=== PATIENT | female | born 1990 | race African-American/Black ===

== ENCOUNTER 2018-06-24 17:53 | Emergency (ER) | payer OTHER ==
[~2018-06-24] VITALS: Ht 154.9 cm; Wt 54.4 kg
[2018-06-24] MEDS ORDERED: NITROGLYCERIN SUBLINGUAL 0.4 MG BOTTLE OF 25. SL PRN (18:30)
[2018-06-24] MEDS ORDERED: ASPIRIN CHEWABLE 81 MG TABLET. PO ONE (18:30)
[2018-06-24] MEDS ORDERED: IV NORMAL SALINE 1000ML BAG 1,000 ML IV SCH (18:30)
--- NOTE | 2018-06-24 18:41 | PHYS DOC ---
Past Medical History Past Medical History: Other Additional Past Medical Histor: taylor Past Surgical History: Other Additional Past Surgical Histo: skin grafts Alcohol Use: None Drug Use: None Adult General Chief Complaint Chief Complaint: NAUSEA/VOMITING/DIARRHA HPI HPI Patient is a 27-year-old female who presents with complaint of acute onset of dizziness that started yesterday morning. She states that symptoms have continued since that time. She describes the dizziness as if everything is spinning and she feels like she is given a fall. She states that when the dizziness that she gets very nauseated and vomits. She denies any headache. She denies any chest pain or shortness of breath. Patient states that symptoms are improved when she lies still and worsened with movement. Review of Systems Review of Systems Constitutional: Denies fever or chills [] Eyes: Denies change in visual acuity, redness, or eye pain [] Respiratory: Denies cough or shortness of breath [] Cardiovascular: No additional information not addressed in HPI [] GI: Denies abdominal pain. Complains of nausea and vomiting. [] Integument: Denies rash or skin lesions [] Neurologic: Complains of dizziness. Denies headache, focal weakness or sensory changes [] All other systems were reviewed and found to be within normal limits, except as documented in this note. Current Medications Current Medications Current Medications Medications (Trade) Dose Ordered Sig/Alley Start Time Stop Time Status Last Admin Dose Admin Aspirin (Children'S Aspirin) 324 mg 1X ONCE 06/24/18 18:30 06/24/18 18:31 Cancel Lorazepam (Ativan) 1 mg 1X ONCE 06/24/18 18:45 06/24/18 18:46 Cancel Meclizine HCl (Antivert) 25 mg 1X ONCE 06/24/18 20:30 06/24/18 20:31 DC Nitroglycerin (Nitrostat) 0.4 mg PRN Q5MIN PRN 06/24/18 18:30 06/25/18 18:29 Cancel Ondansetron HCl (Zofran) 4 mg 1X ONCE 06/24/18 18:45 06/24/18 18:46 DC 06/24/18 19:22 4 MG Sodium Chloride 1,000 ml @ 100 mls/hr Q10H 06/24/18 18:30 06/25/18 04:29 Cancel Allergies Allergies Allergies Coded Allergies Type Severity Reaction Last Updated Verified No Known Drug Allergies 06/24/18 No Physical Exam Physical Exam Constitutional: Well developed, well nourished, no acute distress, non-toxic appearance. [] HENT: Normocephalic, atraumatic, bilateral external ears normal, oropharynx moist, no oral exudates, nose normal. [] Eyes: PERRLA, EOMI, conjunctiva normal, no discharge. [] Neck: Normal range of motion, no tenderness, supple. [] Cardiovascular: Regular rate and rhythm[] Lungs & Thorax: Bilateral breath sounds clear to auscultation [] Abdomen: Bowel sounds normal, soft, no tenderness. [] Skin: Warm, dry, no erythema, no rash. [] Extremities: No tenderness, no cyanosis, no clubbing, ROM intact, no edema. [] Neurologic: Alert and oriented X 3, no focal deficits noted. [] Current Patient Data Vital Signs Vital Signs Date Time Temp Pulse Resp B/P (MAP) Pulse Ox O2 Delivery O2 Flow Rate FiO2 06/24/18 20:09 68 121/69 (86) 100 Room Air 06/24/18 17:58 97.9 16 97.9 Lab Values Laboratory Tests Test 06/24/18 18:47 White Blood Count 6.0 x10^3/uL (4.0-11.0) Red Blood Count 4.80 x10^6/uL (3.50-5.40) Hemoglobin 7.7 g/dL (12.0-15.5) L Hematocrit 27.1 % (36.0-47.0) L Mean Corpuscular Volume 57 fL (79-100) L Mean Corpuscular Hemoglobin 16 pg (25-35) L Mean Corpuscular Hemoglobin Concent 28 g/dL (31-37) L Red Cell Distribution Width 20.3 % (11.5-14.5) H Platelet Count 223 x10^3/uL (140-400) Neutrophils (%) (Auto) 51 % (31-73) Lymphocytes (%) (Auto) 44 % (24-48) Monocytes (%) (Auto) 4 % (0-9) Eosinophils (%) (Auto) 0 % (0-3) Basophils (%) (Auto) 1 % (0-3) Neutrophils # (Auto) 3.1 x10^3uL (1.8-7.7) Lymphocytes # (Auto) 2.7 x10^3/uL (1.0-4.8) Monocytes # (Auto) 0.2 x10^3/uL (0.0-1.1) Eosinophils # (Auto) 0.0 x10^3/uL (0.0-0.7) Basophils # (Auto) 0.0 x10^3/uL (0.0-0.2) Platelet Estimate Adequate (ADEQUATE) Hypochromasia Marked Poikilocytosis Mod Anisocytosis Mod Microcytosis Marked Target Cells Occ Ovalocytes Few Acanthocytes (Spur Cells) Occ Schistocytes Occ Sodium Level 141 mmol/L (136-145) Potassium Level 3.9 mmol/L (3.5-5.1) Chloride Level 104 mmol/L (98-107) Carbon Dioxide Level 25 mmol/L (21-32) Anion Gap 12 (6-14) Blood Urea Nitrogen 11 mg/dL (7-20) Creatinine 0.6 mg/dL (0.6-1.0) Estimated GFR (Cockcroft-Gault) 146.2 BUN/Creatinine Ratio 18 (6-20) Glucose Level 85 mg/dL (70-99) Calcium Level 9.3 mg/dL (8.5-10.1) Magnesium Level 1.9 mg/dL (1.8-2.4) Total Bilirubin 1.1 mg/dL (0.2-1.0) H Aspartate Amino Transferase (AST) 21 U/L (15-37) Alanine Aminotransferase (ALT) 28 U/L (14-59) Alkaline Phosphatase 51 U/L (46-116) Total Protein 8.7 g/dL (6.4-8.2) H Albumin 3.9 g/dL (3.4-5.0) Albumin/Globulin Ratio 0.8 (1.0-1.7) L Laboratory Tests 06/24/18 18:47 Laboratory Tests 06/24/18 18:47 EKG EKG [] Radiology/Procedures Radiology/Procedures [] Course & Med Decision Making Course & Med Decision Making Pertinent Labs and Imaging studies reviewed. (See chart for details) [] Dragon Disclaimer Dragon Disclaimer This electronic medical record was generated, in whole or in part, using a voice recognition dictation system. Departure Departure Impression: Primary Impression: Benign positional vertigo Disposition: HOME, SELF-CARE Condition: STABLE Referrals: NO PCP (PCP) Patient Instructions: Benign Positional Vertigo Scripts Ondansetron Hcl (ZOFRAN) 4 Mg Tablet 4 MG PO PRN TID PRN for NAUSEA, #15 TAB nausea/vomiting Prov: ASA NEVILLE Jr. DO 06/24/18 Meclizine Hcl (MECLIZINE HCL) 25 Mg Tablet 25 MG PO PRN TID PRN for DIZZINESS, #30 dizziness Prov: ASA NEVILLE Jr. DO 06/24/18 Problem Qualifiers Primary Impression: Benign positional vertigo Laterality: unspecified laterality Qualified Codes: H81.10 - Benign paroxysmal vertigo, unspecified ear ASA NEVILLE Jr. DO Jun 24, 2018 18:41
[2018-06-24] MEDS ORDERED: MECLIZINE HCL 12.5 MG TABLET. PO ONE ×2 (18:45→20:30)
[2018-06-24] MEDS ORDERED: ONDANSETRON PF 4 MG/2 ML VIAL. IV ONE (18:45)
[2018-06-24 19:00] LABS: BASO % 1 % (0-3); EOS % 0 % (0-3); HEMATOCRIT 27.1 % (36.0-47.0); HEMOGLOBIN 7.7 g/dL (12.0-15.5); LYMPH # 2.7 x10^3/uL (1.0-4.8); LYMPH % 44 % (24-48); MEAN CORPUSCULAR HEMOGLOBIN 16 pg (25-35); MEAN CORPUSCULAR HGB CONC 28 g/dL (31-37); MEAN CORPUSCULAR VOLUME 57 fL (79-100); MONO # 0.2 x10^3/uL (0.0-1.1); MONO % 4 % (0-9); NEUT # 3.1 x10^3uL (1.8-7.7); NEUT % 51 % (31-73); PLATELET COUNT 223 x10^3/uL (140-400); RED CELL DISTRIBUTION WIDTH 20.3 % (11.5-14.5)
[2018-06-24 19:09] LABS: CALCIUM 9.3 mg/dL (8.5-10.1); CREATININE 0.6 mg/dL (0.6-1.0); GFR 146.2; POTASSIUM 3.9 mmol/L (3.5-5.1)
[2018-06-24 19:21] LABS: ALBUMIN 3.9 g/dL (3.4-5.0); ALBUMIN/GLOBULIN RATIO 0.8 (1.0-1.7); MAGNESIUM 1.9 mg/dL (1.8-2.4); TOTAL BILIRUBIN 1.1 mg/dL (0.2-1.0); TOTAL PROTEIN 8.7 g/dL (6.4-8.2)
[2018-06-24 19:56] LABS: ANISOCYTOSIS MOD; HYPOCHROMIA MARKED; PLT ESTIMATE ADEQUATE (ADEQUATE); TARGET CELLS OCC
[2018-06-24 19:57] LABS: OVALOCYTES FEW; SCHISTOCYTES OCC
[2018-06-24 19:58] LABS: MICROCYTOSIS MARKED
[2018-06-24 19:59] LABS: ACANTHOCYTES OCC
[2018-06-24 20:01] LABS: POIKILOCYTOSIS MOD
[2018-06-24] MEDS ORDERED: ONDA4TAB7 PO (20:37)
[2018-06-24] MEDS ORDERED: MECL25TA3 PO (20:37)
[2018-06-24 21:09] VITALS: BP 119/56
--- NOTE | 2018-06-25 18:49 | EKG ---
[facility] [address] [place] [address] Test Date: 2018-06-24 Test Time: 19:30:44 Pat Name: JAVED SOLIS Department: Room: Gender: F General Superintendent: : 1990 Requested By: ASA NEVILLE Order Number: [id number] Reading MD: Helio Ayoub Measurements Intervals Jeddo Rate: 60 P: 54 SC: 144 QRS: 43 QRSD: 74 T: 17 QT: 394 QTc: 394 Interpretive Statements SINUS RHYTHM Electronically Signed On 07-01-2018 11:03:30 DIESEL SERVICE APPRENTICE by Helio Ayoub
== END 2018-06-24 21:27 | disposition home or self-care (01) ==
LOC: ER 17:53
DX: H81.10 Benign paroxysmal vertigo, unspecified ear (principal); R11.2 Nausea with vomiting, unspecified; Z79.82 Long term (current) use of aspirin
CPT/HCPCS: 36415; 80053; 83735; 85025; 93005; 96374; 96375; 99284; J2060; J2405; J8597

== ENCOUNTER 2019-04-30 15:28 | Emergency (ER) | payer OTHER ==
[~2019-04-30] VITALS: Ht 154.9 cm; Wt 63.5 kg
[~2019-04-30 15:28] MED LIST: MECL-75 PO; ONDA4TAB7 PO
[2019-04-30] MEDS ORDERED: KETOROLAC TROMETHAMINE 10 MG TABLET PO STA (15:59)
[2019-04-30] MEDS ORDERED: LIDOCAINE 2% VISCOUS 15 ML SOLUTION. SWSW STA (15:59)
[2019-04-30] MEDS ORDERED: AMOX1TAB61 PO (16:08)
--- NOTE | 2019-04-30 16:09 | PHYS DOC ---
Past Medical History Past Medical History: Other Additional Past Medical Histor: taylor Past Surgical History: Other Additional Past Surgical Histo: skin grafts Alcohol Use: None Drug Use: None Adult General Chief Complaint Chief Complaint: DENTAL PROBLEM HPI HPI Patient is a 28 year old female who presents with headache, cough that's been ongoing for 3 days. Patient also been having toothache this been ongoing for weeks. She rates her pain 10 out of 10 in severity and sharp. Review of Systems Review of Systems Constitutional: Denies fever or chills [] Eyes: Denies change in visual acuity, redness, or eye pain [] HENT: Denies nasal congestion or sore throat [] Respiratory: Reports cough denies shortness of breath [] Cardiovascular: No additional information not addressed in HPI [] GI: Denies abdominal pain, nausea, vomiting, bloody stools or diarrhea [] : Denies dysuria or hematuria [] Musculoskeletal: Denies back pain or joint pain [] Integument: Denies rash or skin lesions [] Neurologic: Reports headache, denies focal weakness or sensory changes [] Endocrine: Denies polyuria or polydipsia [] Complete systems were reviewed and found to be within normal limits, except as documented in this note. Allergies Allergies Allergies Coded Allergies Type Severity Reaction Last Updated Verified No Known Drug Allergies 06/24/18 No Physical Exam Physical Exam Constitutional: Well developed, well nourished, no acute distress, non-toxic appearance. HENT: Normocephalic, atraumatic, bilateral external ears normal, oropharynx donya st, no oral exudates, nose normal. Dental cavity to #18. Eyes: PERRLA, EOMI, conjunctiva normal, no discharge. [] Neck: Normal range of motion, no tenderness, supple, no stridor. [] Cardiovascular:Heart rate regular rhythm, no murmur [] Lungs & Thorax: Bilateral breath sounds clear to auscultation [] Abdomen: Bowel sounds normal, soft, no tenderness, no masses, no pulsatile masses. [] Skin: Warm, dry, no erythema, no rash. [] Neurologic: Alert and oriented X 3, normal motor function, normal sensory function, no focal deficits noted. [] Psychologic: Affect normal, judgement normal, mood normal. [] EKG EKG [] Radiology/Procedures Radiology/Procedures [] Course & Med Decision Making Course & Med Decision Making Pertinent Labs and Imaging studies reviewed. (See chart for details) Will get viscious lidocaine, and toradol for pain/headache. Will place on Augmentin for tooth infection. Dragon Disclaimer Abimael Disclaimer This electronic medical record was generated, in whole or in part, using a voice recognition dictation system. Departure Departure Impression: Primary Impression: Infected dental caries Additional Impression: Headache Disposition: HOME, SELF-CARE Condition: STABLE Referrals: NO PCP (PCP) Patient Instructions: Carbamide Peroxide dental solution, Dental Caries Additional Instructions: Thank you for visiting [facility]. We appreciate you trusting us with your care. If any additional problems come up don't hesitate to return to visit us. Please follow up with your primary care provider so they can plan additional care if needed and know about the problem that you had. If symptoms worsen come back to the Emergency Department. Any concerning symptoms that start such as chest pain, shortness of air, weakness or numbness on one side of the body, running high fevers or any other concerning symptoms return to the ER. Please make an appointment with a dentist for dental issue. Scripts Amoxicillin/Potassium Clav (AUGMENTIN 875-125 TABLET) 1 Each Tablet 1 TAB PO BID for 10 Days, #20 TAB 0 Refills Prov: SANJIV HICKS APRN 04/30/19 Problem Qualifiers Additional Impression: Headache Headache type: unspecified Headache chronicity pattern: acute headache Intractability: not intractable Qualified Codes: R51 - Headache SANJIV HICKS APRN Apr 30, 2019 16:09
[2019-04-30 16:13] VITALS: BP 111/64
== END 2019-04-30 16:51 | disposition home or self-care (01) ==
LOC: ER 15:28
DX: K04.7 Periapical abscess without sinus (principal); R51 Headache
CPT/HCPCS: 99283

== ENCOUNTER 2019-05-02 16:40 | Emergency (ER) | payer OTHER ==
[~2019-05-02] VITALS: Ht 154.9 cm; Wt 54.4 kg
[2019-05-02 16:40] VITALS: BP 111/60
[~2019-05-02 16:40] MED LIST changes: +AMOX1TAB61 PO
[2019-05-02] MEDS ORDERED: PRED50TA PO (17:19)
[2019-05-02] MEDS ORDERED: ACET325T9 PO (17:19)
[2019-05-02] MEDS ORDERED: IBUP-1007 PO (17:19)
--- NOTE | 2019-05-02 17:19 | PHYS DOC ---
Past Medical History Past Medical History: No Pertinent History Additional Past Medical Histor: taylor (JONATHANBRUCE LEGAL BILLING ANALYST) Past Surgical History: Other Additional Past Surgical Histo: skin grafts (JONATHANBRUCE LEGAL BILLING ANALYST) Alcohol Use: None Drug Use: None (JONATHANBRUCE LEGAL BILLING ANALYST) Adult General Chief Complaint Chief Complaint: FLU SYMPTOM HPI HPI Patient is a 28 year old female presenting to the ED today with flulike symptoms including cough, nasal, headaches, body aches for much symptoms for 3-4 days patient was seen in the ED 2 days ago for similar symptoms and her children have similar symptoms. She also complaining of subjective fevers. (BRUCE CASTILLO LEGAL BILLING ANALYST) Review of Systems Review of Systems Constitutional: Reports subjective fevers and body aches Eyes: Denies change in visual acuity, redness, or eye pain [] HENT: Reports nasal congestion, denies sore throat [] Respiratory: Reports cough, denies shortness of breath [] Cardiovascular: No additional information not addressed in HPI [] GI: Denies abdominal pain, nausea, vomiting, bloody stools or diarrhea [] : Denies dysuria or hematuria [] Musculoskeletal: Denies back pain or joint pain [] Integument: Denies rash or skin lesions [] Neurologic: Reports headache, denies focal weakness or sensory changes [] Endocrine: Denies polyuria or polydipsia [] All other systems were reviewed and found to be within normal limits, except as documented in this note. (BRUCE CASTILLO LEGAL BILLING ANALYST) Allergies Allergies Allergies Coded Allergies Type Severity Reaction Last Updated Verified No Known Drug Allergies 06/24/18 No (SANJIV WOOTEN DO) Physical Exam Physical Exam Constitutional: Well developed, well nourished, no acute distress, non-toxic appearance. [] HENT: Normocephalic, atraumatic, bilateral external ears normal, oropharynx moist, no oral exudates, nose normal. [] Eyes: PERRLA, EOMI, conjunctiva normal, no discharge. [] Neck: Normal range of motion, no tenderness, supple, no stridor. [] Cardiovascular:Heart rate regular rhythm, no murmur [] Lungs & Thorax: Bilateral breath sounds clear to auscultation [] Abdomen: Bowel sounds normal, soft, no tenderness, no masses, no pulsatile masses. [] Skin: Warm, dry, no erythema, no rash. [] Back: No tenderness, no CVA tenderness. [] Extremities: No tenderness, no cyanosis, no clubbing, ROM intact, no edema. [] Neurologic: Alert and oriented X 3, normal motor function, normal sensory function, no focal deficits noted. [] Psychologic: Affect normal, judgement normal, mood normal. [] (BRUCE CASTILLO APRN) Current Patient Data Vital Signs Vital Signs Date Time Temp Pulse Resp B/P (MAP) Pulse Ox O2 Delivery O2 Flow Rate FiO2 05/02/19 16:40 99.0 96 20 111/60 (77) 100 Room Air 99.0 (WOOTEN,SANJIV Liu DO) EKG EKG [] (BRUCE CASTILLO APRN) Radiology/Procedures Radiology/Procedures [] (BRUCE CASTILLO APRN) Course & Med Decision Making Course & Med Decision Making Pertinent Labs and Imaging studies reviewed. (See chart for details) This is a 28-year-old female patient presenting to the ED today with flulike symptoms including headaches, body aches, chills, cough, nasal congestion, symptoms for 3-4 days. Family members have similar symptoms. Supportive care measures recommended. (BRUCE CASTILLO APRN) Dragon Disclaimer Dragon Disclaimer This electronic medical record was generated, in whole or in part, using a voice recognition dictation system. (BRUCE CASTILLO APRN) Departure Departure Impression: Primary Impression: Viral illness Additional Impression: Cough Disposition: 01 HOME, SELF-CARE Condition: STABLE Referrals: NO PCP (PCP) follow up with your doctor in 1-2 weeks Patient Instructions: Influenza Facts Additional Instructions: You were evaluated in the emergency room with flulike symptoms. Please rest, push fluids, maintain good hand hygiene. Take Tylenol/ibuprofen as needed for fever pain and body aches. This type of symptoms will run their own course. We sent prescriptions to your pharmacy. Scripts Acetaminophen (TYLENOL) 325 Mg Tablet 1-2 TAB PO QID, #60 TAB 2 Refills Prov: BRUCE CASTILLO APRN 05/02/19 Ibuprofen (IBUPROFEN) 600 Mg Tablet 600 MG PO PRN Q6HRS PRN for INFLAMMATION, #20 TAB Prov: BRUCE CASTILLO APRN 05/02/19 Prednisone (PREDNISONE) 50 Mg Tablet 1 TAB PO DAILY, #5 TAB Prov: MUTUNGA,BRUCE LEGAL BILLING ANALYST 05/02/19 Attending Signature Attending Signature I have reviewed the PA/BULK MAIL TECHNICIAN's note and plan of care. I was available for consultation as needed during the patient's visit in the emergency department. I agree with the clinical impression, plan, and disposition. (SANJIV WOOTEN DO) Problem Qualifiers BRUCE CASTILLO LEGAL BILLING ANALYST May 02, 2019 17:19 SANJIV WOOTEN DO May 06, 2019 19:04
== END 2019-05-02 17:26 | disposition home or self-care (01) ==
LOC: ER 16:40
DX: B34.9 Viral infection, unspecified (principal)
CPT/HCPCS: 99283

== ENCOUNTER 2019-05-28 10:46 | Emergency (ER) | payer OTHER ==
[~2019-05-28] VITALS: Ht 154.9 cm; Wt 54.0 kg
[~2019-05-28 10:46] MED LIST changes: +ACET325T9 PO; +IBUP-1007 PO; +PRED50TA PO
[2019-05-28 11:41] VITALS: BP 133/63
--- NOTE | 2019-05-28 12:08 | PHYS DOC ---
Past Medical History Past Medical History: No Pertinent History Additional Past Medical Histor: taylor Past Surgical History: Other Additional Past Surgical Histo: skin grafts Alcohol Use: None Drug Use: None Adult General Chief Complaint Chief Complaint: FINGER INJURY HPI HPI Patient is a 28 year old female who presents with patient states this morning she was going down some stairs when she slipped and bent her right middle finger backward trying to catch herself. She rates her pain 8 out of 10. She denies any numbness and tingling. Patient states she took her medication this morning. Review of Systems Review of Systems Musculoskeletal: Right middle finger pain. Denies back pain or joint pain [] All other systems were reviewed and found to be within normal limits, except as documented in this note. Allergies Allergies Allergies Coded Allergies Type Severity Reaction Last Updated Verified No Known Drug Allergies 06/24/18 No Physical Exam Physical Exam Constitutional: Well developed, well nourished, no acute distress, non-toxic appearance. [] HENT: Normocephalic, atraumatic, bilateral external ears normal, oropharynx moist, no oral exudates, nose normal. [] Eyes: PERRLA, EOMI, conjunctiva normal, no discharge. [] Neck: Normal range of motion, no tenderness, supple, no stridor. [] Cardiovascular:Heart rate regular rhythm, no murmur [] Lungs & Thorax: Bilateral breath sounds clear to auscultation [] Abdomen: Bowel sounds normal, soft, no tenderness, no masses, no pulsatile masses. [] Skin: Warm, dry, no erythema, no rash. [] Back: No tenderness, no CVA tenderness. [] Extremities: Right middle finger tenderness, no cyanosis, no clubbing, right middle finger ROM intact limited, 1+ edema. [] Neurologic: Alert and oriented X 3, normal motor function, normal sensory function, no focal deficits noted. [] Psychologic: Affect normal, judgement normal, mood normal. [] Current Patient Data Vital Signs Vital Signs Date Time Temp Pulse Resp B/P (MAP) Pulse Ox O2 Delivery O2 Flow Rate FiO2 05/28/19 11:41 98.7 59 18 133/63 (86) 97 Room Air 98.7 EKG EKG [] Radiology/Procedures Radiology/Procedures [] Impressions: [facility] [address] [place] [address] IMAGING REPORT Signed PATIENT: JAVED SOLIS ACCOUNT: [id number] : 1990 LOCATION: ER AGE: 28 SEX: F EXAM STATUS: REG ER ORD. PHYSICIAN: CRISTOPHER BARNES APRN REASON: fell down stair, bent middle finger backward PROCEDURE: HAND RIGHT 3V EXAM: Right hand, 3 views. HISTORY: Fall. COMPARISON: None. FINDINGS: 3 views of the right hand are obtained. There is no fracture, dislocation or subluxation. IMPRESSION: No acute osseous finding. Electronically signed by: Polina Pierce MD (05/28/2019 12:25 PM) [facility] [place] and S[place] BY: POLINA PIERCE MD DATE: 05/28/19 1224 Course & Med Decision Making Course & Med Decision Making No nail bed injury. Cap refill less than 3 seconds. Skin pink warm and dry. No joint laxity in the hands. Patient can bend it and straighten it but there is not full range of motion of the finger itself. No bruising but 1+ swelling. Tenderness to the whole finger with palpation. Patient states the pain will shoot up into her dorsal hand. Full range of motion of the wrist and no tenderness or swelling. No bruising or deformities noted. Denies hitting her head, syncope, nausea, vomiting, neck pain, back pain. Ambulatory with a steady gait. Speaks in full clear sentences. Skin pink warm and dry. Full range of motion of her neck. Has no other complaints or extremity pain. Dragon Disclaimer Dragon Disclaimer This electronic medical record was generated, in whole or in part, using a voice recognition dictation system. Departure Departure Impression: Primary Impression: Finger contusion Disposition: 01 HOME, SELF-CARE Condition: STABLE Referrals: NO PCP (PCP) Patient Instructions: Contusion, [id number] Additional Instructions: Take ibuprofen or Aleve for ear pain. Also try using ice. Follow up with a primary care provider if needed. Scripts Ibuprofen (IBUPROFEN) 600 Mg Tablet 600 MG PO PRN Q6HRS PRN for INFLAMMATION, #20 TAB Prov: CRISTOPHER BARNES APRN 05/28/19 Problem Qualifiers Primary Impression: Finger contusion Encounter type: initial encounter Finger: middle finger Damage to nail status: without damage Laterality: right Qualified Codes: S60.031A - Contusion of right middle finger without damage to nail, initial encounter CRISTOPHER BARNES APRN May 28, 2019 12:08
--- NOTE | 2019-05-28 12:28 | RAD ---
EXAM: Right hand, 3 views. HISTORY: Fall. COMPARISON: None. FINDINGS: 3 views of the right hand are obtained. There is no fracture, dislocation or subluxation. IMPRESSION: No acute osseous finding. Electronically signed by: Polina Murphy MD (05/28/2019 12:25 PM) [facility] [place]
[2019-05-28] MEDS ORDERED: IBUP-1007 PO (12:35)
== END 2019-05-28 12:56 | disposition home or self-care (01) ==
LOC: ER 10:46
DX: S60.031A Contusion of right middle finger without damage to nail, initial encounter (principal); Z98.890 Other specified postprocedural states; W01.0XXA Fall on same level from slipping, tripping and stumbling without subsequent striking against object, initial encounter; Y93.89 Activity, other specified; Y92.89 Other specified places as the place of occurrence of the external cause; Y99.8 Other external cause status
CPT/HCPCS: 29130; 73130; 99284